=== PATIENT | female | born 1990 | race Hispanic/Latino ===

== ENCOUNTER 2019-09-02 11:35 | Emergency (ER) | payer SELFPAY ==
[2019-09-02 12:19] LABS: Absolute Lymphocytes (CBC) 2.1 K/uL (0.7-4.9); Basophils % 0.8 % (0-1.3); Hematocrit 34.6 % (36.0-45.0); Lymphocytes % 32.7 % (15.3-44.8); MPV 9.6 fL (7.6-11.3); RBC Red Blood Cell Count 5.06 M/uL (3.86-4.86)
[2019-09-02 12:24] LABS: Protime INR 1.02
[2019-09-02 12:32] LABS: ALT/SGPT 15 U/L (12-78); AST/SGOT 14 U/L (15-37); Albumin 3.6 g/dL (3.4-5.0); Alkaline Phosphatase 69 U/L (45-117); BUN Blood Urea Nitrogen 12 mg/dL (7-18); Bicarbonate 27 mmol/L (21-32); Bilirubin Direct < 0.1 mg/dL (0-0.2); Bilirubin Total 0.2 mg/dL (0.2-1.0); Glucose Level 83 mg/dL (74-106); Magnesium 2.1 mg/dL (1.8-2.4); NT PRO-BNP 77 pg/mL (<125); Potassium 3.9 mmol/L (3.5-5.1); Protein, Total 7.6 g/dL (6.4-8.2); Sodium Level 139 mmol/L (136-145); Troponin (Emerg Dept Use Only) < 0.02 ng/mL (0.0-0.045)
[2019-09-02] MEDS ORDERED: SIMETHICONE 80 MG TAB ONE (12:54)
--- NOTE | 2019-09-02 13:36 | RAD REPORT ---
EXAM DESCRIPTION: US - Abdomen Exam Limited - 09/02/2019 1:15 pm CLINICAL HISTORY: chest pain;Abd pain COMPARISON: No comparisons FINDINGS: The gallbladder demonstrates no gallstones. No pericholecystic fluid or gallbladder wall t hickening. The common bile duct is normal measuring 4 mm. The liver demonstrates no findings of intrahepatic biliary dilatation. IMPRESSION: Unremarkable examination.
[2019-09-02 13:37] LABS: Blood Morphology Comment NOTED (NOT SEEN); Hypochromasia 1+; Ovalocytes 1+; Platelet Estimate ADEQ; Urine White Blood Cell Casts OK
[2019-09-02] MEDS ORDERED: MAGNE/ALUM HYDROXD 30 ML UCUP ONE (14:02)
[2019-09-02] MEDS ORDERED: LIDOCAINE VISCOUS 2% SOLN 15 ML UDC ONE (14:02)
--- NOTE | 2019-09-02 14:23 | RAD REPORT ---
EXAM DESCRIPTION: RAD - Chest Single View - 09/02/2019 2:14 pm CLINICAL HISTORY: CHEST PAIN Chest pain. COMPARISON: No comparisons FINDINGS: Portable technique limits examination quality. The lungs are grossly clear. The heart is normal in size. No displaced fractures. IMPRESSION: No acute intrathoracic process suspected.
--- NOTE | 2019-09-02 15:22 | ER ---
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 Coronavirus screen: Proceed with normal triage. Patient denies a cough. Patient denies shortness of breath or difficulty breathing. Patient denies measured and/or subjective temperature greater than 100.4F prior to today's visit. Patient denies travel on a cruise ship or to a country the [facility] currently lists as an affected area. Patient denies contact with known and/or suspected case of COVID-19. Ebola Screen: Patient denies travel to an Ebola-affected area in the 21 days before illness onset. Initial Sepsis Screen: Does the patient meet any 2 criteria? No. Patient's initial sepsis screen is negative. Does the patient have a suspected source of infection? No. Patient's initial sepsis screen is negative. Risk Assessment: Do you want to hurt yourself or someone else? Patient reports no desire to harm self or others. Onset of symptoms was September 02, 2019. 11:33 Method Of Arrival: EMS: [facility] tw2 11:33 Acuity: DELMY 3 tw2 Triage Assessment: 11:52 General: Appears in no apparent distress. well groomed, Behavior is calm, cooperative, tw2 appropriate for age. Pain: Complains of pain in xyphoid area and mid-sternal area. Cardiovascular: Reports chest pain, Denies shortness of breath. 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 - Social history:: Smoking status: . Screenin:15 Abuse screen: Denies threats or abuse. Nutritional screening: No deficits noted. tw2 Tuberculosis screening: No symptoms or risk factors identified. Fall Risk None identified. Assessment: 11:45 General: Appears in no apparent distress. well groomed, Behavior is calm, cooperative, tw2 appropriate for age. Pain: Complains of pain in mid-sternal area and xyphoid area Pain does not radiate. Pain began suddenly. Neuro: Level of Consciousness is awake, alert, obeys commands, Oriented to person, place, time, situation. Cardiovascular: Heart tones S1 S2 Patient's skin is warm and dry. Rhythm is sinus bradycardia. Respiratory: Airway is patent Respiratory effort is even, unlabored, Respiratory pattern is regular, symmetrical, Breath sounds are clear bilaterally. GI: No signs and/or symptoms were reported involving the gastrointestinal system. Abdomen is flat, Bowel sounds present X 4 quads. : No signs and/or symptoms were reported regarding the genitourinary system. EENT: No signs and/or symptoms were reported regarding the EENT system. Derm: No signs and/or symptoms reported regarding the dermatologic system. Musculoskeletal: Range of motion: intact in all extremities. 13:50 Reassessment: "the pain is still there and it gets worse when I bend forward". tw2 14:14 Reassessment: Patient appears in no apparent distress at this time. No changes from tw2 previously documented assessment. Patient and/or family updated on plan of care and expected duration. Pain level reassessed. Patient is alert, oriented x 3, equal unlabored respirations, skin warm/dry/pink. 15:47 Reassessment: Patient appears in no apparent distress at this time. No changes from tw2 previously documented assessment. Patient and/or family updated on plan of care and expected duration. Pain level reassessed. Patient is alert, oriented x 3, equal unlabored respirations, skin warm/dry/pink. Vital Signs: 11:33 BP 116 / 69; Pulse 63; Resp 20; Temp 99.2(TE); Pulse Ox 100% on R/A; Weight 84.82 kg tw2 (R); Height 5 ft. 3 in. (160.02 cm); Pain 5/10; 12:52 BP 113 / 70; Pulse 69; Resp 18; Pulse Ox 100% on R/A; Pain 5/10; tw2 13:49 BP 128 / 89; Pulse 62; Resp 17; Pulse Ox 99% ; Pain 6/10; tw2 14:14 BP 136 / 86; Pulse 69; Resp 17; Pulse Ox 99% on R/A; tw2 14:36 BP 132 / 97; Pulse 53; Resp 17; Pulse Ox 97% on R/A; tw2 15:47 BP 133 / 88; Pulse 61; Resp 17; Pulse Ox 99% ; Pain 0/10; tw2 11:33 Body Mass Index 33.12 (84.82 kg, 160.02 cm) tw2 13:49 "when i bend forward it still hurts me well its there and hurts me more than if i just tw2 sit still" ED Course: 11:36 Patient arrived in ED. tw2 11:36 Olivia Miranda RN is Primary Nurse. tw2 11:36 Placed in gown. Bed in low position. Call light in reach. corporate relations director on. Pulse ox tw2 on. NIBP on. Warm blanket given. Verbal reassurance given. 11:36 Maintain EMS IV. Dressing intact. Good blood return noted. Site clean \\T\\ dry. Gauge \\T\\ tw 2 site: 20 g RIGHT ac. Patient maintains SpO2 saturation greater than 95% on room air. 11:52 Triage completed. tw2 11:52 Arm band placed on. tw2 12:22 Juliet Weinberg FNP-C [facility]. snw 12:22 Toribio Mary MD is Attending Physician. snw 13:15 US Abdomen Limited In Process Unspecified. EDMS 14:15 XRAY Chest (1 view) In Process Unspecified. EDMS 15:46 No provider procedures requiring assistance completed. IV discontinued, intact, tw2 bleeding controlled, No redness/swelling at site. Pressure dressing applied. Administered Medications: 12:52 Drug: Simethicone 240 mg Route: PO; tw2 14:01 Follow up: Response: No adverse reaction tw2 14:01 Drug: GI Cocktail without - (Maalox Suspension 30 ml, Lidocaine Liquid 2 % 15 tw2 ml) Route: PO; 14:36 Follow up: Response: No adverse reaction; Pain is decreased tw2 Outcome: 15:21 Discharge ordered by MD. doran 15:47 Discharged to home ambulatory. tw2 15:47 Condition: stable 15:47 Discharge instructions given to patient, Instructed on discharge instructions, follow up and referral plans. medication usage, Demonstrated understanding of instructions, follow-up care, medications, Prescriptions given X 2. 15:48 Patient left the ED. tw2 Signatures: Dispatcher [employer] EDVT Juliet Weinberg, MANAGER POLICY-C MANAGER POLICY-Csnw Olivia Miranda RN RN tw2 Corrections: (The following items were deleted from the chart) 12:09 11:55 PSHx: Bypass; tw2 tw2
--- NOTE | 2019-09-02 15:22 | EDPHYS ---
Physician Documentation [facility] Name: Paula Gunderson Age: 29 yrs Sex: Female : 1990 Arrival Date: 09/02/2019 Time: 11:36 Bed 19 Private MD: ED Physician Toribio Mary HPI: 09/01 12:32 This 29 yrs old Female presents to ER via EMS with complaints of Chest Pain > snw 28 y/o. 12:32 The patient or guardian reports chest pain that is located primarily in the anterior snw chest wall, left. The pain radiates to Associated signs and symptoms: Pertinent positives: shortness of breath. The chest pain is described as sharp, stabbing. Duration: The patient or guardian reports a single episode, that is now resolved. Modifying factors: The symptoms are alleviated by nothing. Severity of pain: At its worst the pain was moderate. EMS care prior to arrival includes: aspirin, nitroglycerin. The patient has not experienced similar symptoms in the past. It is unknown whether or not the patient has recently seen a physician. pt was at work in a hot environment, felt sharp pain in esophageal area radiating around to back and under left breast. . 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 - Social history:: Smoking status: . ROS: 12:30 Constitutional: Negative for fever, chills, and weight loss, Eyes: Negative for injury, snw pain, redness, and discharge, ENT: Negative for injury, pain, and discharge, Neck: Negative for injury, pain, and swelling. 12:30 : Negative for injury, bleeding, discharge, and swelling, MS/Extremity: Negative for injury and deformity, Skin: Negative for injury, rash, and discoloration, Neuro: Negative for headache, weakness, numbness, tingling, and seizure, Psych: Negative for depression, anxiety, suicide ideation, homicidal ideation, and hallucinations. 12:30 Cardiovascular: Positive for chest pain. 12:30 Respiratory: Positive for shortness of breath, on exertion. 12:30 Abdomen/GI: Positive for hx of gastric sleeve. 12:30 Back: Positive for radiated pain. Exam: 12:29 Constitutional: This is a well developed, well nourished patient who is awake, alert, snw and in no acute distress. Head/Face: Normocephalic, atraumatic. Eyes: Pupils equal round and reactive to light, extra-ocular motions intact. Lids and lashes normal. Conjunctiva and sclera are non-icteric and not injected. Cornea within normal limits. Periorbital areas with no swelling, redness, or edema. ENT: Nares patent. No nasal discharge, no septal abnormalities noted. Tympanic membranes are normal and external auditory canals are clear. Oropharynx with no redness, swelling, or masses, exudates, or evidence of obstruction, uvula midline. Mucous membranes moist. Neck: Trachea midline, no thyromegaly or masses palpated, and no cervical lymphadenopathy. Supple, full range of motion without nuchal rigidity, or vertebral point tenderness. No Meningismus. Chest/axilla: Normal chest wall appearance and motion. Nontender with no deformity. No lesions are appreciated. Respiratory: Lungs have equal breath sounds bilaterally, clear to auscultation and percussion. No rales, rhonchi or wheezes noted. No increased work of breathing, no retractions or nasal flaring. Abdomen/GI: Soft, non-tender, with normal bowel sounds. No distension or tympany. No guarding or rebound. No evidence of tenderness throughout. Back: No spinal tenderness. No costovertebral tenderness. Full range of motion. Skin: Warm, dry with normal turgor. Normal color with no rashes, no lesions, and no evidence of cellulitis. MS/ Extremity: Pulses equal, no cyanosis. Neurovascular intact. Full, normal range of motion. Neuro: Awake and alert, GCS 15, oriented to person, place, time, and situation. Cranial nerves II-XII grossly intact. Motor strength 5/5 in all extremities. Sensory grossly intact. Cerebellar exam normal. Normal gait. Psych: Awake, alert, with orientation to person, place and time. Behavior, mood, and affect are within normal limits. 12:29 Cardiovascular: Rate: normal, Rhythm: regular, Pulses: no pulse deficits are appreciated, Heart sounds: normal, Edema: is not appreciated. Vital Signs: 11:33 BP 116 / 69; Pulse 63; Resp 20; Temp 99.2(TE); Pulse Ox 100% on R/A; Weight 84.82 kg tw2 (R); Height 5 ft. 3 in. (160.02 cm); Pain 5/10; 12:52 BP 113 / 70; Pulse 69; Resp 18; Pulse Ox 100% on R/A; Pain 5/10; tw2 13:49 BP 128 / 89; Pulse 62; Resp 17; Pulse Ox 99% ; Pain 6/10; tw2 14:14 BP 136 / 86; Pulse 69; Resp 17; Pulse Ox 99% on R/A; tw2 14:36 BP 132 / 97; Pulse 53; Resp 17; Pulse Ox 97% on R/A; tw2 15:47 BP 133 / 88; Pulse 61; Resp 17; Pulse Ox 99% ; Pain 0/10; tw2 11:33 Body Mass Index 33.12 (84.82 kg, 160.02 cm) tw2 13:49 "when i bend forward it still hurts me well its there and hurts me more than if i just tw2 sit still" MDM: 12:24 Patient medically screened. snw 15:24 Data reviewed: vital signs, nurses notes. Data interpreted: Pulse oximetry: on room air snw is 97 %. Interpretation: normal. Counseling: I had a detailed discussion with the patient and/or guardian regarding: the historical points, exam findings, and any diagnostic results supporting the discharge/admit diagnosis, the presence of at least one elevated blood pressure reading (>120/80) during this emergency department visit, lab results, radiology results, the need for outpatient follow up, for definitive care, to return to the emergency department if symptoms worsen or persist or if there are any questions or concerns that arise at home. Special discussion: Based on the patient's history, exam, and Dx evaluation, there is no indication for emergent intervention or inpatient Tx. It is understood by the patient/guardian that if the Sx's persist or worsen they need to return immediately for re-evaluation. Based on the patient's Hx, exam, and Dx evaluation, there is no indication for emergent surgery or inpatient Tx. It is understood by the patient/guardian that if the Sx's persist or worsen they need to return immediately for re-evaluation. I have referred the patient to see his PCP for further evaluation of high blood pressure. Based on the history and exam findings, there is no indication for further emergent testing or inpatient evaluation. I discussed with the patient/guardian the need to see the primary care provider for further evaluation of the symptoms. 09/01 11:53 Order name: Basic Metabolic Panel; Complete Time: 12:34 tw09/01 11:53 Order name: CBC with Diff; Complete Time: 13:44 tw2 09/01 11:53 Order name: LFT's; Complete Time: 12:34 09/01 11:53 Order name: Magnesium; Complete Time: 12:34 09/01 11:53 Order name: NT PRO-BNP; Complete Time: 12:34 09/01 11:53 Order name: PT-INR; Complete Time: 12:28 09/01 11:53 Order name: Troponin (emerg Dept Use Only); Complete Time: 12:34 09/01 11:53 Order name: XRAY Chest (1 view); Complete Time: 14:26 tw09/01 11:53 Order name: EKG; Complete Time: 11:54 tw09/01 11:53 Order name: Cardiac monitoring; Complete Time: 11:54 09/01 12:23 Order name: US Abdomen Limited; Complete Time: 13:46 snw 09/01 13:39 Order name: CBC Smear Scan; Complete Time: 13:44 EDMS 09/01 11:53 Order name: EKG - Nurse/Tech; Complete Time: 11:54 09/01 11:53 Order name: IV Saline Lock; Complete Time: 11:54 09/01 11:53 Order name: Labs collected and sent; Complete Time: 14:01 tw09/01 11:53 Order name: O2 Per Protocol; Complete Time: 11:54 09/01 11:53 Order name: O2 Sat Monitoring; Complete Time: 14:01 tw2 Administered Medications: 12:52 Drug: Simethicone 240 mg Route: PO; tw2 14:01 Follow up: Response: No adverse reaction tw2 14:01 Drug: GI Cocktail without - (Maalox Suspension 30 ml, Lidocaine Liquid 2 % 15 tw2 ml) Route: PO; 14:36 Follow up: Response: No adverse reaction; Pain is decreased tw2 Disposition: 16:12 Co-signature as Attending Physician, Toribio Mary MD I agree with the assessment and kdr plan of care. Disposition: 09/02/19 15:21 Discharged to Home. Impression: Iron deficiency anemia, unspecified, Gastro-esophageal reflux disease, Chest pain, unspecified. - Condition is Stable. - Discharge Instructions: Anemia, Nonspecific, Nonspecific Chest Pain, Gastroesophageal Reflux Disease, Adult, Hypertension, How to Take Your Blood Pressure, [id number], Food Choices for Gastroesophageal Reflux Disease, Child, [id number]. - Prescriptions for Carafate 1 gram Oral Tablet - take 1 tablet by ORAL route 4 times per day take on an empty stomach, beginning on waking and last dose at bedtime; 100 tablet. Vitamin 27- 0.8 mg Oral Tablet - take 1 tablet by ORAL route once daily; 30 tablet. - Work release form, Medication Reconciliation Form, Thank You Letter, Antibiotic Education, Prescription Opioid Use form. - Follow up: Emergency Department; When: As needed; Reason: Worsening of condition. Follow up: Private Physician; When: 1 - 2 days; Reason: Recheck today's complaints, Continuance of care, Re-evaluation by your physician. Signatures: Dispatcher [employer] EDMS Toribio Mary MD MD [facility] Juliet Weinberg, SOPHIE-Yoko BARRIOS-Olivia Hodgson RN RN tw2 Corrections: (The following items were deleted from the chart) 12:09 11:55 PSHx: Bypass; tw2 tw2 15:48 15:21 09/02/2019 15:21 Discharged to Home. Impression: Iron deficiency anemia, tw2 unspecified; Gastro-esophageal reflux disease; Chest pain, unspecified. Condition is Stable. Forms are Medication Reconciliation Form, Thank You Letter, Antibiotic Education, Prescription Opioid Use. Follow up: Emergency Department; When: As needed; Reason: Worsening of condition. Follow up: Private Physician; When: 1 - 2 days; Reason: Recheck today's complaints, Continuance of care, Re-evaluation by your physician. snw
[2019-09-02 16:05] VITALS: BP 133/88; O2SAT 99
--- NOTE | 2019-09-02 18:58 | EKG ---
Test Date: 2019-09-02 Test Time: 11:49:36 Geospatial Developer: YANELI MEASUREMENT RESULTS: Intervals: Rate: 56 TX: 148 QRSD: 94 QT: 434 QTc: 418 [place]: P: 33 TX: 148 QRS: 36 T: 53 INTERPRETIVE STATEMENTS: Sinus bradycardia Otherwise normal ECG No previous ECG available for comparison Electronically Signed On 09-02-19 18:56:14 CDT by Bronson Foreman
== END 2019-09-02 15:48 | disposition home or self-care (01) ==
LOC: ER 11:35
DX: K21.9 Gastro-esophageal reflux disease without esophagitis (principal); D50.9 Iron deficiency anemia, unspecified; Z88.0 Allergy status to penicillin
CPT/HCPCS: 36415; 71045; 76705; 80048; 80076; 83735; 83880; 84484; 85025; 85610; 93005; 99285